=== PATIENT | male | born 1960 | race Caucasian/White ===

== ENCOUNTER 2018-02-07 14:49 | Emergency (ER) | payer OTHER ==
[2018-02-07] MEDS ORDERED: HYDROcodone/APAP 5-325MG 1 EACH TAB PO STA (16:01)
[2018-02-07] MEDS ORDERED: IBUPROFEN 800 MG TAB PO STA (16:01)
[2018-02-07] MEDS ORDERED: AMOXIC-POT CLAV 875MG STARTER 2 EACH TABLET PO STA (16:01)
[2018-02-07] MEDS ORDERED: DEXAMETHASONE SOD PHOSPHATE 10 MG/ML 1 ML VIAL IM STA (16:01)
[2018-02-07] MEDS ORDERED: AMOXIC-POT CLAV 875-125MG 1 EACH TAB PO STA (16:01)
[2018-02-07] MEDS ORDERED: ACET/COD 300 MG/30 MG STARTER PACK 6 TAB BTL PO STA (16:02)
--- NOTE | 2018-02-07 16:47 | ED ---
General Adult HPI - General Chief complaint: Dental/Oral Stated complaint: Dental pain Time Seen by Provider: 02/07/18 15:56 Source: patient, RN notes reviewed, old records reviewed Mode of arrival: ambulatory Limitations: no limitations - History of Present Illness Initial comments: This is a 57-year-old male the ER for evaluation. This patient's today for evaluation of left-sided dental pain and swelling.. Severe left-sided dental pain. Patient has no fevers. No other complaints. Patient is history of dental caries with dental fracture, dental pain started today severe swelling started today patient denies any other complaints - Related Data Home Medications Medication Instructions Recorded Confirmed No Known Home Medications 02/07/18 02/07/18 Allergies Allergy/AdvReac Type Severity Reaction Status Date / Time morphine AdvReac Vomiting Verified 02/07/18 15:52 Review of Systems ROS Statement: Those systems with pertinent positive or pertinent negative responses have been documented in the HPI. ROS Other: All systems not noted in ROS Statement are negative. Past Medical History Past Medical History: No Reported History History of Any Multi-Drug Resistant Organisms: None Reported Past Surgical History: Orthopedic Surgery Additional Past Surgical History / Comment(s): rt knee replace Past Psychological History: No Psychological Hx Reported Smoking Status: Current every day smoker Past Alcohol Use History: Occasional Past Drug Use History: None Reported General Exam Limitations: no limitations General appearance: alert, in no apparent distress Head exam: Present: atraumatic, normocephalic, normal inspection Eye exam: Present: normal appearance, PERRL, EOMI. Absent: scleral icterus, conjunctival injection, periorbital swelling ENT exam: Present: normal exam, mucous membranes moist, other (Significant left maxillary swelling inferiorly alveolar, mild soft tissue, no abscess noted) Neck exam: Present: normal inspection. Absent: tenderness, meningismus, lymphadenopathy Respiratory exam: Present: normal lung sounds bilaterally. Absent: respiratory distress, wheezes, rales, rhonchi, stridor Cardiovascular Exam: Present: regular rate, normal rhythm, normal heart sounds. Absent: systolic murmur, diastolic murmur, rubs, gallop, clicks GI/Abdominal exam: Present: soft, normal bowel sounds. Absent: distended, tenderness, guarding, rebound, rigid Extremities exam: Present: normal inspection, full ROM, normal capillary refill. Absent: tenderness, pedal edema, joint swelling, calf tenderness Back exam: Present: normal inspection Neurological exam: Present: alert, oriented X3, CN II-XII intact Psychiatric exam: Present: normal affect, normal mood Skin exam: Present: warm, dry, intact, normal color. Absent: rash Course Vital Signs 02/07/18 15:50 Temperature 98.0 F Pulse Rate 65 Respiratory 18 Rate Blood Pressure 178/112 O2 Sat by Pulse 98 Oximetry - Reevaluation(s) Reevaluation #1: 02/07/18 16:46 Patient is feeling better with pain control, will Medical Decision Making - Medical Decision Making 57 male the ER with severe dental pain dental caries and dental abscess. Patient placed on antibiotics and can be discharged home Disposition Clinical Impression: Toothache, Dental caries, Dental abscess Disposition: HOME SELF-CARE Condition: Good Instructions: Dental Caries (ED), Dental Abscess (ED) Is patient prescribed a controlled substance at d/c from ED?: No Referrals: Adiel Cardona DDS [STAFF PHYSICIAN] - 1-2 days
[2018-02-07 16:56] VITALS: BP 170/80; PULSE 90; RESP 16; TEMP 97.9
== END 2018-02-07 16:53 | disposition home or self-care (01) ==
LOC: EC 14:49
DX: K04.7 Periapical abscess without sinus (principal); K02.9 Dental caries, unspecified; F17.200 Nicotine dependence, unspecified, uncomplicated; Z88.5 Allergy status to narcotic agent
CPT/HCPCS: 99283; 96372; J1100

== ENCOUNTER 2018-02-09 01:03 | Emergency (ER) | payer OTHER ==
[2018-02-09 01:12] VITALS: BP 175/98; PULSE 90; RESP 18; TEMP 98.5
[2018-02-09] MEDS ORDERED: cefTRIAXone 1,000 MG VIAL (IM USE) IM STA (02:16)
[2018-02-09] MEDS ORDERED: KETOROLAC 30 MG/ML 1 ML VIAL IM STA (02:16)
--- NOTE | 2018-02-09 02:21 | ED ---
ENT HPI - General Chief complaint: Dental/Oral Stated complaint: tooth ache Time Seen by Provider: 02/09/18 02:09 Source: patient Mode of arrival: ambulatory Limitations: no limitations - History of Present Illness Initial comments: 57 years old male comes in with the abdominal pain left lower jaw dental pain he was seen in the ER yesterday he got some antibiotics she was not able to get them filled today he feels it is some swelling over the left lower jaw, he denies any fever no chills he has a plan to see dentist tomorrow . We have system is unremarkable otherwise - Related Data Previous Rx's Medication Instructions Recorded Penicillin V Potassium [Pen Vee K] 500 mg PO QID #40 tablet 02/07/18 Amoxic-Pot Clav 875-125Mg 1 tab PO Q12HR #14 tablet 02/09/18 [Augmentin 875-125] Allergies Allergy/AdvReac Type Severity Reaction Status Date / Time morphine AdvReac Vomiting Verified 02/09/18 01:10 Review of Systems ROS Statement: Those systems with pertinent positive or pertinent negative responses have been documented in the HPI. ROS Other: All systems not noted in ROS Statement are negative. Past Medical History Past Medical History: No Reported History History of Any Multi-Drug Resistant Organisms: None Reported Past Surgical History: Orthopedic Surgery Additional Past Surgical History / Comment(s): rt knee replace Past Psychological History: No Psychological Hx Reported Smoking Status: Current every day smoker Past Alcohol Use History: Occasional Past Drug Use History: None Reported General Exam - General Exam Comments Initial Comments: General: The patient is awake and alert, in moderate distress Skin: Skin is warm and dry and no rashes or lesions are noted. Eye: Pupils are equal, round and reactive to light, extra-ocular movements are intact; there is normal conjunctiva bilaterally. Ears, nose, mouth and throat: Left lower jaw at the premolar area noticed a lot of swelling around the lost tooth him a tooth has some black pigmented whether is old filling or just degenerative changes. Also left jaw is quite tender to palpate Neck: The neck is supple, there is no tenderness or JVD. Cardiovascular: There is a regular rate and rhythm. No murmur, rub or gallop is appreciated. Respiratory: To auscultation bilateral, no wheezing no rhonchi no distress respiratory mauricio noticed Gastrointestinal: Soft, non-distended, non-tender abdomen without masses or organomegaly noted. There is no rebound or guarding present. Bowel sounds are unremarkable. Back: There is no tenderness to palpation in the midline. There is no obvious deformity. Musculoskeletal: Normal ROM, no tenderness, There is no pedal edema. There is no calf tenderness or swelling. No cords were appreciated. Neurological: CN II-XII intact, Cranial nerves III through XII are intact. There are no obvious motor or sensory deficits. Coordination appears grossly intact. Speech is normal. Psychiatric: Cooperative, appropriate mood & affect, normal judgment. Limitations: no limitations Course Vital Signs 02/09/18 01:10 Temperature 98.5 F Pulse Rate 90 Respiratory 18 Rate Blood Pressure 175/98 O2 Sat by Pulse 98 Oximetry He has appointment with the dentist tomorrow will give him a shot of Rocephin 1 g intramuscular now and portal 30 mg intramuscular and given the prescription of Augmentin 1 g twice a day for 7 days and Tylenol or Motrin for pain management Disposition Clinical Impression: Dental abscess Disposition: HOME SELF-CARE Condition: Good Instructions: Abscess (ED), Toothache (ED) Prescriptions: Amoxic-Pot Clav 875-125Mg [Augmentin 875-125] 1 tab PO Q12HR #14 tablet Is patient prescribed a controlled substance at d/c from ED?: No Referrals: None,Stated [Primary Care Provider] - 1-2 days
== END 2018-02-09 02:47 | disposition home or self-care (01) ==
LOC: EC 01:03
DX: K04.7 Periapical abscess without sinus (principal); R10.9 Unspecified abdominal pain; F17.200 Nicotine dependence, unspecified, uncomplicated; Z88.5 Allergy status to narcotic agent
CPT/HCPCS: 99282; 96372 ×2; J0696; J1885